=== PATIENT | female | born 1990 | race Caucasian/White ===

== ENCOUNTER 2019-11-17 12:56 | Day surgery (SDC) | payer OTHER, BC ==
[~2019-11-17] VITALS: Ht 154.9 cm; Wt 62.6 kg
[~2019-11-17 12:56] MED LIST: ALL10TAB29 PO; CALCTAB41 PO; LEVO50TA5 PO; LIDOCAINE 2% INJ 100 MG/5 ML SDV (FOR ANES.) As Ordered ONE; LR 1,000 ML IV ONE; METH54TA5 PO; MIDAZOLAM INJ 2 MG/2 ML VIAL (J2250) As Ordered ONE; MULTCAP PO; ONDANSETRON 4MG/2ML VIAL (J2405) As Ordered ONE; PANT20TA2 PO; ROCURONIUM BROMIDE 50 MG/5 ML VIAL As Ordered ONE; SM HTAB3 PO; dexameTHASONE 4 MG/ML 1ML VIAL (J1100) As Ordered ONE; fentaNYL 250 MCG/5 ML INJECTION (J3010) As Ordered ONE; propofoL 200 MG/20 ML VIAL As Ordered ONE
[2019-11-17] MEDS ORDERED: SUGAMMADEX SODIUM 500 MG/5 ML VIAL (BRIDION) As Ordered ONE (14:25)
[2019-11-17] MEDS ORDERED: KETOROLAC 60 MG/2 ML VIAL (J1885) As Ordered ONE (14:25)
[2019-11-17] MEDS ORDERED: ACETAMINOPHEN 1000MG 100ML IV BTL (OFIRMEV) (J0131 PER 10MG) As Ordered ONE (14:25)
[2019-11-17] MEDS ORDERED: PROMETHAZINE INJ 25 MG/ML VIAL (J2550) As Ordered ONE (15:14)
--- NOTE | 2019-11-17 15:28 | RO ---
DATE OF PROCEDURE: 11/17/2019 PREPROCEDURE DIAGNOSIS: Pain, suspected endometriosis. POSTPROCEDURE DIAGNOSES: Endometriosis confirmed as well as anterior abdominal adhesions. PROCEDURE: Laparoscopy with laser ablation of endometriotic implants and lysis of adhesions. SURGEON: Dr. Yesi Alonzo. PT SITTER: None. ANESTHESIA: General endotracheal anesthesia. DESCRIPTION OF PROCEDURE: Devin was brought to the operating room where sufficient general endotracheal anesthesia was induced. She was prepped, draped and positioned in the usual sterile fashion. Bladder emptied and the uterine manipulator placed after the uterus was sounded to 8. This is, of course, a retroverted uterus. Attention was then turned to the abdomen. Transverse semilunar incision was made at the base of the umbilicus. Sharp and blunt dissection were continued to the level of the rectus fascia which was grasped using Bita clamps, elevated to the wound, transversely incised and secured with 0 Vicryl retention sutures. The peritoneum was entered under direct visualization and the Sofia cannula placed in an open laparoscopic technique with the 0 Vicryl retention sutures used to secure the cannula. CO2 insufflation was then begun. After adequate CO2 insufflation, the peritoneal cavity was visualized. There were normal shiny peritoneal surfaces throughout. There was no excrescence of ascites or exudate, and initially, no significant lesions. Upper abdomen was normal. The anterior lower abdomen and pelvis were normal except for some very minor adhesions of descending colon over the left lateral abdominal and pelvis sidewall. With Trendelenburg, we were then able to elevate this retroverted uterus and see reassuring ovaries. Left ovary has ovulatory changes but no significant lesion. But then in the posterior cul-de-sac, over the left uterosacral ligament and in the left ovarian fossa, we found very obvious endometriotic implants, photos of these were taken. The laser was assembled and brought through the operative port of the scope and then used to cauterize the endometriotic implants. All of the ones that were seen were cauterized and were accessible. There were close but not over the ureter and mostly over the uterosacral and the posterior cul-de-sac, and then of course the ones in the ovarian fossa on the left mostly the inferior aspect of that. There were no endometriotic implants anteriorly, nor through the upper abdomen and the tubes themselves appeared very clear. There was no scaring near the tubes or any changes in that regard. Photos were taken to document this. We also used the cold scissors to dissect those adhesions of the descending colon, although whether those were actually relevant to the patient's pain is unclear but of course, we went ahead and took them down to try to make sure we did everything that we could to alleviate the patient's pain. She will of course, be discussing postoperative medical therapy for the endometriosis. But at this point, having ablated all of the visible endometriotic implants, and taken down the adhesions, the procedure was then ended. The instruments and the CO2 removed from the abdomen and the fascial wound closed with the 0 Vicryl retention sutures and #3-0 Vicryl used in a subcuticular stitch at the skin. There was good approximation and hemostasis of both layers. A dry sterile dressing was then applied. ESTIMATED BLOOD LOSS: About 2 mL. FLUID REPLACEMENT: Crystalloid. COMPLICATIONS: None. CONDITION AND DISPOSITION: Devin tolerated the procedure well and was recovering in the recovery room in good condition.
[2019-11-17] MEDS ORDERED: IBUPROFEN 600 MG TAB PO PRN (15:30)
[2019-11-17] MEDS ORDERED: fentaNYL 100 MCG/2 ML INJECTION (J3010) IV PRN (15:30)
[2019-11-17] MEDS ORDERED: ONDANSETRON 4MG/2ML VIAL (J2405) IV PRN (15:30)
[2019-11-17] MEDS ORDERED: NORCO, ANEXSIA 5/325MG TABLET (HYDROcodone/ACETAMINOPHEN) PO PRN (15:30)
[2019-11-17] MEDS ORDERED: LR 1,000 ML IV SCH ×2 (15:30)
[2019-11-17] MEDS: oxyCODONE 5MG TAB PO PRN ×2 (15:42→16:20)
[2019-11-17] MEDS ORDERED: PROMETHAZINE INJ 25 MG/ML VIAL (J2550) IV PRN (15:45)
[2019-11-17] MEDS ORDERED: METOCLOPRAMIDE INJ 10MG/2ML VIAL (J2765) IV PRN (15:45)
[2019-11-17 18:35] VITALS: BP 99/56
== END 2019-11-17 18:40 | disposition home or self-care (01) ==
LOC: M SDC 12:56
PROVIDERS: ATTEND Obstetrics & Gynecology
DX: N80.0 Endometriosis of uterus (principal); K66.0 Peritoneal adhesions (postprocedural) (postinfection); E03.9 Hypothyroidism, unspecified; K58.9 Irritable bowel syndrome, unspecified; K21.9 Gastro-esophageal reflux disease without esophagitis; J30.9 Allergic rhinitis, unspecified; Z88.1 Allergy status to other antibiotic agents; Z88.8 Allergy status to other drugs, medicaments and biological substances; Z91.048 Other nonmedicinal substance allergy status; Z79.899 Other long term (current) drug therapy
CPT/HCPCS: 58662; 81025; J0131; J1100; J1885; J2250; J2405; J3010